=== PATIENT | female | born 1975 | race Caucasian/White ===

== ENCOUNTER 2016-07-17 15:12 | Emergency (ER) | payer OTHER ==
[~2016-07-17] VITALS: Ht 152.4 cm; Wt 95.5 kg
[~2016-07-17 15:12] MED LIST: BAC30OI TOP; OMEP20CA16 PO
[2016-07-17 15:15] VITALS: Ht 152.4 cm; Wt 95.5 kg
[2016-07-17] MEDS ORDERED: SOD CHLORIDE 0.9% 1,000 ML IV STA (17:21)
[2016-07-17 17:57] LABS: ADD UMIC YES; URINE BILIRUBIN (Dip) NEGATIVE (NEGATIVE); URINE BLOOD (Dip) TRACE (NEGATIVE); URINE COLOR LT. YELLOW (YELLOW); URINE GLUCOSE (Dip) NEGATIVE (NEGATIVE); URINE KETONES (Dip) NEGATIVE (NEGATIVE); URINE LEUKOCYTE ESTERASE (Dip) NEGATIVE (NEGATIVE); URINE NITRITE (Dip) NEGATIVE (NEGATIVE); URINE TOTAL PROTEIN (Dip) 1+ (NEGATIVE); URINE UROBILINOGEN (Dip) 0.2 E.U./dL (0.1-1.0)
[2016-07-17 18:05] LABS: ALBUMIN 4.8 g/dl (3.3-4.9)
[2016-07-17 18:06] LABS: POTASSIUM 4.1 mmol/L (3.5-5.1)
[2016-07-17 18:06] LABS: BACTERIA,URINE FEW; URINE RBCS 0-2 /HPF (0)
[2016-07-17 18:08] LABS: ALBUMIN/GLOBULIN RATIO 1.33; CREATININE 0.81 mg/dl (0.44-1.00); TOTAL PROTEIN 8.4 g/dl (6.1-8.1)
[2016-07-17 18:09] LABS: CALCIUM 10.1 mg/dl (8.4-10.2)
[2016-07-17] MEDS ORDERED: HYDROCODONE/APAP (10/325) TAB PO ONE (18:30)
[2016-07-17 18:37] LABS: HEMOGLOBIN 12.1 g/dl (12.0-16.0); MEAN CORPUSCULAR HEMOGLOBIN 26.5 pg (29.0-33.0); MEAN CORPUSCULAR HGB CONC 32.8 g/dl (32.0-37.0); MEAN CORPUSCULAR VOLUME 80.8 fl (82.0-101.0); MEAN PLATELET VOLUME 8.5 fl (7.4-10.4); PLATELET COUNT 413 10^3/UL (140-440); RED BLOOD COUNT 4.58 10^6/ul (4.20-5.40); RED CELL DISTRIBUTION WIDTH 14.9 % (11.5-14.5); UNCORRECTED WBC 8.1 10^3/ul (4.8-10.8); WHITE BLOOD COUNT 8.1 10^3/ul (4.8-10.8)
[2016-07-17 18:41] LABS: CONDITION 1; LH ANALYZER COMMENTS 1
[2016-07-17 19:07] LABS: MONOCYTE # 0.1 10^3/ul (0.3-0.9); NEUTROPHIL # 2.9 10^3/ul (1.6-7.5)
[2016-07-17 19:19] LABS: ANISOCYTOSIS 1+; MICROCYTOSIS 1+
[2016-07-17 19:20] LABS: HYPOCHROMASIA 1+; PLATELET ESTIMATE PLT APPEAR ADEQUATE
--- NOTE | 2016-07-17 19:38 | ERD ---
ER Documentation Chief Complaint Date/Time DATE: 07/17/16 TIME: 19:37 Chief Complaint WEAKNESS, BODY ACHES, FEELS THIRTY SINCE FRIDAY, ANXIOUS HPI This 41-year-old female presents with multiple complaints including but not limited to feeling thirsty, fatigue, body aches pain in her bilateral feet. She feels "foggy". She has history of diabetes, hypertension, fibromyalgia. She denies any urinary complaints. ROS All systems reviewed and are negative except as per history of present illness. Medications Home Meds Active Scripts Omeprazole* (Omeprazole*) 20 Mg Capsule.dr, 20 MG PO BID, #20 Prov:Nellie Taylor PA-C 04/21/16 Bacitracin* (Bacitracin Zinc Oint*) 28.35 Gm Oint, 1 APPLIC TOP BID for 7 Days, #1 TUB APPLI TO Prov:Nellie Taylor PA-C 04/21/16 Allergies Allergies: Coded Allergies: No Known Allergy (Unverified , 04/20/16) PMhx/Soc History of Surgery: No Anesthesia Reaction: No Hx Neurological Disorder: No Hx Respiratory Disorders: No Hx Cardiac Disorders: No Hx Psychiatric Problems: No Hx Miscellaneous Medical Probl: Yes (diabetes, chronic back pain, gastritis) Hx Alcohol Use: No Hx Substance Use: No Hx Tobacco Use: No Physical Exam Vitals Vital Signs Date Time Temp Pulse Resp B/P Pulse Ox O2 Delivery O2 Flow Rate FiO2 07/17/16 15:15 97.9 88 20 162/88 99 Physical Exam Const: [] Alert, [id number]. Head: Atraumatic Eyes: Normal Conjunctiva ENT: Normal External Ears, Nose and Mouth. Neck: Full range of motion..~ No meningismus. Resp: Clear to auscultation bilaterally Cardio: Regular rate and rhythm, no murmurs Abd: Soft, non tender, non distended. Normal bowel sounds Skin: No petechiae or rashes Back: No midline or flank tenderness Ext: No cyanosis, or edema Neur: Awake and alert. Cranial nerves II through XII grossly intact. Normal gait. No appreciable focal neurologic deficits. Psych: Normal Mood and Affect Result Diagram: 07/17/16 1720 07/17/16 1720 Results 24 hrs Laboratory Tests Test 07/17/16 17:20 07/17/16 17:21 Alanine Aminotransferase (ALT/SGPT) 40IU/L Albumin 4.8g/dl Albumin/Globulin Ratio 1.33 Alkaline Phosphatase 42IU/L Anion Gap 21 Anisocytosis 1+ Aspartate Amino Transf (AST/SGOT) 41IU/L Blood Morphology Comment Blood Urea Nitrogen 15mg/dl Calcium Level 10.1mg/dl Carbon Dioxide Level 31mmol/L Chloride Level 96mmol/L Creatinine 0.81mg/dl Direct Bilirubin 0.00mg/dl Globulin 3.60g/dl Glucose Level 111mg/dl Hematocrit 37.0% Hemoglobin 12.1g/dl Hypochromasia 1+ Indirect Bilirubin 0.0mg/dl Lipase 188U/L Lymphocytes # 5.010^3/ul Lymphocytes % 62.0% Mean Corpuscular Hemoglobin 26.5pg Mean Corpuscular Hemoglobin Concent 32.8g/dl Mean Corpuscular Volume 80.8fl Mean Platelet Volume 8.5fl Microcytosis 1+ Monocytes # 0.110^3/ul Monocytes % 1.0% Neutrophils # 2.910^3/ul Neutrophils % 36.0% Platelet Count 22056^3/UL Platelet Estimate PLT APPEAR ADEQUATE Potassium Level 4.1mmol/L Red Blood Count 4.5810^6/ul Red Cell Distribution Width 14.9% Sodium Level 144mmol/L Total Bilirubin 0.0mg/dl Total Protein 8.4g/dl White Blood Count 8.110^3/ul Urine Bacteria FEW Urine Bilirubin NEGATIVE Urine Clarity CLEAR Urine Color LT. YELLOW Urine Epithelial Cells FEW Urine Glucose NEGATIVE% Urine Hemoglobin TRACE Urine Ketones NEGATIVE Urine Leukocyte Esterase NEGATIVE Urine Microscopic RBC 0-2/HPF Urine Microscopic WBC 0-2/HPF Urine Nitrite NEGATIVE Urine Specific [place] 1.025 Urine Total Protein 1+ Urine Urobilinogen 0.2 E.U./dL Urine pH 5.5 Current Medications Medications (Trade) Dose Ordered Sig/Brandie Route PRN Reason Start Time Stop Time Status Last Admin Dose Admin Sodium Chloride (NS) 1,000 ml @ 1,000 mls/hr Q1H STAT IV 07/17/16 17:21 07/17/16 18:20 DC 07/17/16 17:43 Acetaminophen/ Hydrocodone Bitart ([place] (10/325)) 1 tab ONCE ONCE PO 07/17/16 18:30 07/17/16 18:31 DC Procedures/MDM Given patient's comorbidities and IV was obtained. CBC and CMP show no acute abnormalities. Urine is negative for leukocytes, nitrites, blood, glucose. Patient was given 1 L normal saline. Patient was noted to be amatory non-ill- appearing.. Patient presents with multiple complaints of uncertain etiology. There is no signs or symptoms of ketoacidosis, sepsis, signs or symptoms to suggest acute coronary syndrome, PE, acute abdomen, meningitis, neurologic deficit. She will be discharged home with instructions for rest, drink clear fluids and observe for new or worsening symptoms. She should follow-up with her primary doctor this week. Departure Diagnosis: Primary Impression: Acute weakness Condition: Stable Patient Instructions: Weakness, Unk Cause Additional Instructions: Labs and urine normal today. Uncertain cause of symptoms. Recommend rest, fluids and follow-up with primary care doctor. Return for fevers, vomiting, shortness breath, chest pain, new or worsening symptoms. JEEVAN FERNANDES MD Jul 17, 2016 19:38
[2016-07-17 20:19] VITALS: BP 155/85; PULSE 91; RESP 18
== END 2016-07-17 20:19 | disposition home or self-care (01) ==
LOC: FTE 15:12
DX: R53.1 Weakness (principal); I10 Essential (primary) hypertension; E11.9 Type 2 diabetes mellitus without complications
CPT/HCPCS: 36415; 80053; 81001; 83690; 85025; 96360; J7030; Z7502; Z7610; 81003

== ENCOUNTER 2017-03-05 12:36 | Emergency (ER) | END 2017-03-05 16:30 | disposition home or self-care (01) | DX: M54.5 Low back pain (principal); E11.9 Type 2 diabetes mellitus without complications | CPT/HCPCS: 20552; J3301; Z7502; Z7610 ==

== ENCOUNTER 2017-06-24 17:40 | Emergency (ER) | END 2017-06-24 23:19 | disposition home or self-care (01) ==

== ENCOUNTER 2017-07-16 19:00 | Emergency (ER) | END 2017-07-16 23:46 | disposition home or self-care (01) ==